=== PATIENT | female | born 1980 | race African-American/Black ===

== ENCOUNTER → 2017-02-15 13:30 | Outpatient (CLI) | payer MEDICAID ==
[2015-10-04 23:51] VITALS: BMI 26.5
[~2017-02-15 13:30] MED LIST: IBUPROFEN600 MG PO; PERCOCET 5-3251 TAB PO
== END | disposition home or self-care (01) ==
LOC: D.CT 13:30
DX: R10.31 Right lower quadrant pain (principal)

== ENCOUNTER 2017-11-09 23:46 | Emergency (ER) | payer MEDICAID ==
[~2017-11-09] VITALS: Ht 175.3 cm; Wt 81.8 kg
[2017-11-09 23:52] VITALS: Ht 175.3 cm; Wt 81.8 kg
[2017-11-10 00:39] LABS: APPEARANCE CLEAR (CLEAR); BILIRUBIN NEGATIVE (NEGATIVE); COLOR YELLOW (YELLOW); GLUCOSE NEGATIVE (NEGATIVE); KETONE NEGATIVE (NEGATIVE); NITRITE NEGATIVE (NEGATIVE); PROTEIN NEGATIVE (NEGATIVE); SPECIFIC GRAVITY 1.015 (1.005-1.020); UROBILINOGEN NORMAL (NORMAL)
[2017-11-10 00:40] LABS: BASOPHILS 0.2 % (0-2); EOSINOPHILS 1.9 % (0-7); HEMATOCRIT 40.1 % (36.0-48.0); HEMOGLOBIN 13.1 g/dL (12-16); IMMATURE GRANULOCYTES 0.2 % (0-5); LYMPHOCYTES 40.9 % (15-50); MCH 29.6 pg (26.0-34.0); MCHC 32.7 g/dL (31.0-37.0); MCV 90.7 fL (80.0-100.0); MEAN PLATELET VOLUME 10.4 fL (7.4-10.4); MONOCYTES 8.7 % (2-11); NEUTROPHILS 48.1 % (40-80); PLATELET COUNT 307 10x3/uL (130-400); RBC 4.42 10x6/uL (4.00-5.40); WBC 9.8 10x3/uL (4.8-10.8)
[2017-11-10 01:02] LABS: ALBUMIN 3.4 g/dL (3.4-5.0); ALKALINE PHOSPHATASE 78 U/L (46-116); ALT (SGPT) 15 U/L (10-68); BILIRUBIN - TOTAL 0.22 mg/dL (0.2-1.3); CALC OSMOLALITY 282 mosm/kg (275-300); CALCIUM 8.9 mg/dL (8.5-10.1); CARBON DIOXIDE 25.1 mmol/L (21.0-32.0); CHLORIDE - SERUM 106 mmol/L (98-107); CREATININE - SERUM 0.9 mg/dL (0.6-1.3); GLUCOSE 99 mg/dL (74-106); LIPASE 129 U/L (73-393); POTASSIUM - SERUM 4.1 mmol/L (3.5-5.1); PROTEIN - SERUM 7.4 g/dL (6.4-8.2); SODIUM 141 mmol/L (136-145); UREA NITROGEN 18 mg/dL (7-18); eGFR NON AFRICAN AMERICAN 75 mL/min (90-120)
[2017-11-10] MEDS ORDERED: OMEPRAZOLE40 MG PO (02:29)
[2017-11-10 05:45] VITALS: BP 129/77
== END 2017-11-10 02:45 | disposition home or self-care (01) ==
LOC: D.ER 23:46
PROVIDERS: Family Medicine
DX: K21.9 Gastro-esophageal reflux disease without esophagitis (principal); R10.13 Epigastric pain

== ENCOUNTER → 2018-01-23 09:03 | Outpatient (CLI) | payer MEDICAID ==
[2017-11-09 23:52] VITALS: BMI 26.6
[~2018-01-23 09:03] MED LIST changes: +OMEPRAZOLE40 MG PO
== END | disposition home or self-care (01) ==
LOC: D.NM 09:03
DX: R14.0 Abdominal distension (gaseous) (principal); R10.13 Epigastric pain

== ENCOUNTER → 2018-05-15 22:23 | Outpatient (CLI) | payer MEDICAID ==
[2017-11-09 23:52] VITALS: BMI 26.6
== END | disposition home or self-care (01) ==
LOC: D.MAMMO 14:00
DX: N64.4 Mastodynia (principal)

== ENCOUNTER → 2018-11-11 09:15 | Outpatient (CLI) | payer MEDICAID ==
[2017-11-09 23:52] VITALS: BMI 26.6
== END | disposition home or self-care (01) ==
LOC: D.US 09:15
PROVIDERS: ATTEND Emergency Medicine
DX: R92.8 Other abnormal and inconclusive findings on diagnostic imaging of breast (principal)

== ENCOUNTER → 2019-03-12 08:47 | Outpatient (CLI) | payer MEDICAID ==
[2017-11-09 23:52] VITALS: BMI 26.6
== END | disposition home or self-care (01) ==
LOC: D.RAD 08:47
PROVIDERS: ATTEND Internal Medicine Gastroenterology
DX: R10.13 Epigastric pain (principal); K31.84 Gastroparesis

== ENCOUNTER 2019-05-11 14:28 | Emergency (ER) | payer MEDICAID ==
[~2019-05-11] VITALS: Ht 175.3 cm; Wt 83.2 kg
[2019-05-11 14:32] VITALS: Ht 175.3 cm; Wt 83.2 kg
[2019-05-11 14:54] LABS: APPEARANCE CLEAR (CLEAR); BILIRUBIN NEGATIVE (NEGATIVE); COLOR YELLOW (YELLOW); GLUCOSE NEGATIVE (NEGATIVE); KETONE SMALL mg/dL (NEGATIVE); NITRITE NEGATIVE (NEGATIVE); PROTEIN NEGATIVE (NEGATIVE); UROBILINOGEN NORMAL (NORMAL)
[2019-05-11 14:58] LABS: BACTERIA FEW /hpf (NEGATIVE); EPITHELIAL CELLS 0-5 /hpf (0-5); WHITE CELLS - URINE 0-5 /hpf (NEGATIVE)
[2019-05-11 14:59] LABS: HCG URINE NEGATIVE (NEGATIVE)
[2019-05-11] MEDS ORDERED: FLAGYL500 MG PO (15:18)
[2019-05-11 16:20] VITALS: BP 124/86
== END 2019-05-11 16:22 | disposition home or self-care (01) ==
LOC: D.ER 14:28
PROVIDERS: Emergency Medicine
DX: Z20.2 Contact with and (suspected) exposure to infections with a predominantly sexual mode of transmission (principal); N76.0 Acute vaginitis; J45.909 Unspecified asthma, uncomplicated

== ENCOUNTER 2019-06-17 08:00 | Outpatient (CLI) | payer MEDICAID ==
[2019-05-11 14:32] VITALS: BMI 27.0
[~2019-06-17 08:00] MED LIST changes: +FLAGYL500 MG PO
== END 2019-06-17 23:59 | disposition home or self-care (01) ==
LOC: D.MAMMO 08:00
PROVIDERS: ATTEND Emergency Medicine
DX: Z12.31 Encounter for screening mammogram for malignant neoplasm of breast (principal)

== ENCOUNTER 2019-07-28 08:10 | Day surgery (SDC) | payer MEDICAID ==
[2019-07-25 12:13] LABS: BASOPHILS 0.5 % (0-2); EOSINOPHILS 1.6 % (0-7); HEMATOCRIT 43.2 % (36.0-48.0); HEMOGLOBIN 14.1 g/dL (12-16); IMMATURE GRANULOCYTES 0.2 % (0-5); LYMPHOCYTES 44.9 % (15-50); MCH 29.7 pg (26.0-34.0); MCHC 32.6 g/dL (31.0-37.0); MCV 90.9 fL (80.0-100.0); MEAN PLATELET VOLUME 9.9 fL (7.4-10.4); MONOCYTES 8.7 % (2-11); NEUTROPHILS 44.1 % (40-80); RBC 4.75 10x6/uL (4.00-5.40); RDW 13.3 % (11.5-14.5); WBC 6.4 10x3/uL (4.8-10.8)
[2019-07-25 12:17] LABS: PLATELET COUNT 396 10x3/uL (130-400)
[~2019-07-28] VITALS: Ht 175.3 cm; Wt 77.1 kg
--- NOTE | ~2019-07-28 | OP ---
PATIENT NAME: JAYMIE WALKER MEDICAL RECORD: [id number] :82 LOCATION:D.OPS ADMISSION DATE: SURGEON: DANI ELAM MD DATE OF OPERATION: 07/28/2019 PREOPERATIVE DIAGNOSES: 1. Pelvic pain. 2. Pelvic mass. POSTOPERATIVE DIAGNOSES: 1. Pelvic pain. 2. Pelvic mass. 3. Pelvic adhesions. 4. Peritoneal inclusion cyst. 5. Ovarian remnants bilaterally. PROCEDURES: 1. Diagnostic laparoscopy. 2. Lysis of adhesions. 3. Removal of peritoneal cyst. SURGEON: Dani Elam MD CHEMICAL EDUCATOR: Boris Winn. ANESTHESIOLOGIST: Dr. Evans. ANESTHESIA: General. FINDINGS: Adhesions of the small bowel to the anterior abdominal wall were encountered as well as large bowel adhesions in the left adnexa. Small bowel was also adhesed over the right adnexa. SPECIMENS REMOVED: None. SPECIMEN DISPOSITION: None applicable. ESTIMATED BLOOD LOSS: Minimal. FLUIDS: 800 cc of lactated Ringer's. URINE OUTPUT: 50 Loss. DRAINS: None. COMPLICATIONS: None. INDICATIONS: The patient is a 39-year-old female with persistent dyspareunia and pelvic pain. The patient's workup has included an ultrasound, which shows a persistent pelvic mass on the left adnexa. The patient is consented for diagnostic laparoscopy, possible left salpingo-oophorectomy and any indicated procedure. DESCRIPTION OF PROCEDURE: After informed consent was assured, the patient was taken to the operating room, anesthetic was obtained without difficulty. The OPERATIVE REPORT [id number] JAYMIE WALKER patient was now prepped and draped in usual sterile fashion. An incision was made to accommodate a 5-mm trocar and it was placed at the umbilicus. Pneumoperitoneum was established and the patient was in Trendelenburg position. A 10-mm port was placed in the midline and then a 5-mm port placed in the right lower quadrant. Through this port, a grasper was inserted. The adhesions which were encountered in the midline are placed on gentle traction. From the midline port, a Thunderbeat coagulation cutter was used along with EndoShears to take down the adhesions in the midline. After the adhesions in the midline are mobilized, the bowel swept free of the pelvis. Further adhesions were encountered in the right lower quadrant and these are taken down with EndoShears. Once the bowel has been freed from the sidewall, visualization of the adnexa reveals only a small ovarian remnant densely adhesed to the sidewall. Attention was now directed to the left side were adhesions of the large bowel are now mobilized using sharp dissection. Once these adhesions were freed, left adnexa was visualized. There was clear colored or a straw colored cyst arising from the sidewall underneath the left ovarian remnant. Using blunt dissection, this was freed and the cyst ruptures during this process, clear fluid removed. The pelvis was copiously irrigated, irrigant removed. Visualization of the operative field reveals adequate hemostasis. Pneumoperitoneum was now released and accessory trocars were removed under direct visualization. Primary trocar was now removed and all sites closed with a subcuticular stitch and covered with Dermabond. Sponge, lap, needle counts were correct times 2. The patient went to the recovery area in stable condition. TRANSINT:[id number] Voice Confirmation ID: [id number] DOCUMENT ID: [id number] DANI ELAM MD CC: [id number] DICTATION DATE: 07/28/19 1031 INSTRUCTOR TECHNICAL TRAINING: 07/28/19 1403 [facility] [address] [place] [address]
[~2019-07-28 08:10] MED LIST changes: +ALBUTEROL SULF8.5 GM INH
[2019-07-28 09:01] VITALS: BP 117/68; Ht 175.3 cm; Wt 77.1 kg
--- NOTE | 2019-07-28 10:51 | NUR ---
1042 - PT AWAKENING, YOLIS JACOBS
--- NOTE | 2019-07-28 14:40 | NUR ---
1420 PT'S RIDE IS HERE, PT. STATES SHE IS READY TO GO, RELEASED IN WC WITH ESCORT.
== END 2019-07-28 14:20 | disposition home or self-care (01) ==
LOC: D.OPS 08:10 → D.PAN 08:45 → D.OPS 08:45
PROVIDERS: ATTEND Obstetrics & Gynecology
DX: R10.2 Pelvic and perineal pain (principal); R19.07 Generalized intra-abdominal and pelvic swelling, mass and lump; N73.6 Female pelvic peritoneal adhesions (postinfective); K66.8 Other specified disorders of peritoneum; N99.83 Residual ovary syndrome

== ENCOUNTER 2019-08-04 10:30 | Outpatient (CLI) | payer MEDICAID ==
[2019-07-28 09:01] VITALS: BMI 25.1
== END 2019-08-04 11:00 | disposition home or self-care (01) ==
LOC: D.MAMMO 10:30
PROVIDERS: ATTEND Emergency Medicine
DX: R92.8 Other abnormal and inconclusive findings on diagnostic imaging of breast (principal)

== ENCOUNTER 2020-02-28 14:43 | Inpatient (IN) | payer MEDICAID ==
[~2020-02-28] VITALS: Ht 175.3 cm; Wt 73.6 kg
[2020-02-28 15:16] LABS: BASOPHILS 0.2 % (0-2); EOSINOPHILS 0.8 % (0-7); HEMATOCRIT 42.4 % (36.0-48.0); LYMPHOCYTES 43.4 % (15-50); MCH 29.7 pg (26.0-34.0); MCV 89.8 fL (80.0-100.0); MEAN PLATELET VOLUME 9.4 fL (7.4-10.4); MONOCYTES 7.4 % (2-11); NEUTROPHILS 48.2 % (40-80); PLATELET COUNT 335 10x3/uL (130-400); RBC 4.72 10x6/uL (4.00-5.40); RDW 12.9 % (11.5-14.5); WBC 6.3 10x3/uL (4.8-10.8)
[2020-02-28 15:25] LABS: APTT 30.7 SECONDS (22.8-39.4); PROTIME 13.2 SECONDS (11.6-15.0)
[2020-02-28 15:27] LABS: CALC OSMOLALITY 270 mosm/kg (275-300); CARBON DIOXIDE 20.7 mmol/L (21.0-32.0); CHLORIDE - SERUM 105 mmol/L (98-107); CREATININE - SERUM 0.8 mg/dL (0.6-1.3); GLUCOSE 126 mg/dL (74-106); POTASSIUM - SERUM 3.5 mmol/L (3.5-5.1); SODIUM 134 mmol/L (136-145); UREA NITROGEN 15 mg/dL (7-18); eGFR NON AFRICAN AMERICAN 85 mL/min (90-120)
[2020-02-28 15:43] LABS: ALBUMIN 3.7 g/dL (3.4-5.0); ALKALINE PHOSPHATASE 81 U/L (30-120); ALT (SGPT) 13 U/L (10-68); BILIRUBIN - TOTAL 0.68 mg/dL (0.2-1.3); CKMB 0.3 U/L (0.0-3.6); CREATINE KINASE 70 UL (21-215); PRO BNP 29 pg/mL (0-125); PROTEIN - SERUM 7.7 g/dL (6.4-8.2)
[2020-02-28 15:45] LABS: TROPONIN-I < 0.017 ng/mL (0.000-0.060)
[2020-02-28 15:58] LABS: BILIRUBIN NEGATIVE (NEGATIVE); HCG URINE NEGATIVE (NEGATIVE); KETONE NEGATIVE (NEGATIVE); NITRITE NEGATIVE (NEGATIVE); UROBILINOGEN NORMAL mg/dL (< 2)
[2020-02-28 16:07] LABS: EPITHELIAL CELLS 0-5 /hpf (0-5); WHITE CELLS - URINE NSEEN HPF (0-4)
[2020-02-28 16:08] LABS: BACTERIA FEW HPF (NONE SEEN)
--- NOTE | 2020-02-28 18:29 | NUR ---
COVID SWAB COLLECTED AND SENT TO LAB
--- NOTE | 2020-02-28 18:43 | NUR ---
HOA TURNERY TO PATIENT.
--- NOTE | 2020-02-28 19:16 | NUR ---
PT FINISHED EATING ALL OF SANDWHICH TRAY. REPEAT UPDRAFT ORDERED.
--- NOTE | 2020-02-28 19:36 | NUR ---
NS BOLUS COMPLETE.
--- NOTE | 2020-02-28 21:16 | NUR ---
ADMIT TO ROOM 2120 FROM ER. ALERT/ORIENTED/AMBULATORY. NO DISTRESS. TELEMETRY STARTED SHOWING SR 75. INITIATE PLAN OF CARE. ADMISSION ASSESSMENT AND HISTORY +HOME MED REVIEW COMPLETED.
[2020-02-28 22:58] VITALS: BP 125/78; Ht 175.3 cm; Wt 73.6 kg
[2020-02-29 04:00] VITALS: BP 115/66
[2020-02-29 04:55] LABS: BASOPHILS 0 % (0-2); EOSINOPHILS 0 % (0-7); HEMOGLOBIN 13.3 g/dL (12-16); IMMATURE GRANULOCYTES 0.1 % (0-5); LYMPHOCYTES 11.8 % (15-50); MCH 29.4 pg (26.0-34.0); MCHC 32.4 g/dL (31.0-37.0); MCV 90.5 fL (80.0-100.0); MEAN PLATELET VOLUME 9.9 fL (7.4-10.4); MONOCYTES 2.1 % (2-11); PLATELET COUNT 365 10x3/uL (130-400); RBC 4.53 10x6/uL (4.00-5.40); WBC 8.5 10x3/uL (4.8-10.8)
[2020-02-29 05:11] LABS: ALBUMIN 3.4 g/dL (3.4-5.0); ANION GAP 13.9 mmol/L (8-16); BILIRUBIN - TOTAL 0.31 mg/dL (0.2-1.3); CALCIUM 8.7 mg/dL (8.5-10.1); CARBON DIOXIDE 22.8 mmol/L (21.0-32.0); CREATININE - SERUM 0.9 mg/dL (0.6-1.3); POTASSIUM - SERUM 3.7 mmol/L (3.5-5.1); PROTEIN - SERUM 7.4 g/dL (6.4-8.2)
[2020-02-29 05:51] LABS: APTT 33.7 SECONDS (22.8-39.4); INR 1.1 (0.85-1.17); PROTIME 14.1 SECONDS (11.6-15.0)
[2020-02-29 08:13] VITALS: BP 134/82
[2020-02-29] MEDS ORDERED: PREDNISONE10 MG PO (10:18)
--- NOTE | 2020-02-29 13:15 | NUR ---
IV AND TELEMETRY DCD. DC PLANS GIVEN. UNDERSTANDING VOICED. ESCORTED TO CAR BY W/C.
--- NOTE | 2020-02-29 13:34 | MORECARE ---
CASE MANAGEMENT DISCHARGE SUMMARY PATIENT: JAYMIE WALKER UNIT: [id number] ADM DATE: 02/28/20 AGE: 39 : 82 SEX: F ROOM/BED: D.9658 AUTHOR: CHARBEL BERNARD PHYSICIAN: REFERRING PHYSICIAN: LEONCIO SOUSA DO DATE OF SERVICE: 02/29/20 Discharge Plan Patient Name: JAYMIE WALKER Facility: [facility]:[place] : 1980 Planned Disposition: Home Anticipated Discharge Date: 02/28/20 Discharge Date: 02/29/2020 Expected LOS: 1 Initial Reviewer: FÉLIX Initial Review Date: 02/28/2020 Generated: 02/29/20 2:33 pm Comments DCP- Discharge Planning Updated by [id number]: Eddie Patiño on 02/29/20 12:[address] Patient Name: JAYMIE WALKER Admission Status: ER Accout number: [id number] Admission Date: 02-28-2020 : 1980 Admission Diagnosis: Attending: LEONCIO SOUSA Current LOS: 1 Anticipated DC Date: 02-28-2020 Planned Disposition: Home Primary Insurance: [facility] PRIVATE OPTIONS [facility] Discharge Planning Comments: CM met with patient to complete initial dc planning assessment. CM educated patient on the CM role and verbal consent was given by patient to complete assessment. CM verified patient's address, phone number, and emergency contact phone numbers. Patient lives at home with her partner Omar Manrique ([phone]). At discharge patient plans to return home and feels this is a safe discharge. The patient has 0 steps to navigate to enter the home and it is safe. Patient fills her medications at [facility] near [facility] in [place]. CM discussed availability of home health, rehab services, and medical equipment. Patient declined HHS, SNF, IPR, and DME. No other known discharge needs were discussed at this time. Transportation provider at discharge will be with her partner Omar. CM will continue to follow and will assist as needed with dc plans/needs. Planisher: Eddie Patiño DCPIA - Discharge Planning Initial Assessment Updated by [email or web address]: Eddie Patiño on 02/29/20 1:31 pm * Is the patient Alert and Oriented? Yes * How many steps to enter\exit or inside your home? 0/0 * PCP Dr. Juarez * [facility] in [place] * Preadmission Environment Home with Family * ADLs Independent * Equipment None * Other Equipment n/a * List name and contact numbers for known caregivers / representatives who currently or will assist patient after discharge: Omar Burton ([phone]) * Verbal permission to speak to the caregivers and representatives has been obtained from the patient. Yes * Community resources currently utilized None * Please name any agencies selected above. n/a * Additional services required to return to the preadmission environment? No * Can the patient safely return to the preadmission environment? Yes * Has this patient been hospitalized within the prior 30 days at any hospital? No Coverage Notice Reviewer: [id number] Roby Patiño Notice Issued Date-Time: 02/29/2020 11:44 Notice Type: Patient Choice Letter Notice Delivered To: Patient Relationship to Patient: Self 6Th Grade Teacher Name: Delivery Method: HAND - Hand Delivered Cindy Days: Prior Verbal Notification: Recipient Understood Notice: Yes Recipient Signature: Yes Med Rec Note Co-signed by Attending: Coverage Notice Comment: 0 DME/SNF/HHS/IPR Patient Name: JAYMIE WALKER Page [phone] at 1334 All edits/amendments must be made on the electronic document DICTATION DATE: 02/29/20 1334 BAND AND CUFF CUTTER: NAMRATA 02/29/20 1334 RPT#: [id number] DC DATE:02/29/20 STATUS: DIS IN [facility] [address] [place] [address] END OF REPORT
--- NOTE | 2020-03-01 08:55 | MORECARE ---
CASE MANAGEMENT DISCHARGE SUMMARY PATIENT: JAYMIE WALKER UNIT: [id number] ADM DATE: 02/28/20 AGE: 39 : 82 SEX: F ROOM/BED: D.9355 AUTHOR: CHARBEL BERNARD PHYSICIAN: REFERRING PHYSICIAN: LEONCIO SOUSA DO DATE OF SERVICE: 03/01/20 Discharge Plan Patient Name: JAYMIE WALKER Facility: [facility]:[place] : 1980 Planned Disposition: Home Anticipated Discharge Date: 02/28/20 Discharge Date: 02/29/2020 Expected LOS: 1 Initial Reviewer: FÉLIX Initial Review Date: 02/28/2020 Generated: 03/01/20 9:55 am Comments DCP- Discharge Planning Updated by [email or web address]: Eddie Patiño on 02/29/20 12:[address] Patient Name: JAYMIE WALKER Admission Status: ER Accout number: [id number] Admission Date: 02-28-2020 : 1980 Admission Diagnosis: Attending: LEONCIO SOUSA Current LOS: 1 Anticipated DC Date: 02-28-2020 Planned Disposition: Home Primary Insurance: [facility] PRIVATE OPTIONS [facility] Discharge Planning Comments: CM met with patient to complete initial dc planning assessment. CM educated patient on the CM role and verbal consent was given by patient to complete assessment. CM verified patient's address, phone number, and emergency contact phone numbers. Patient lives at home with her partner Omar Manrique ([phone]). At discharge patient plans to return home and feels this is a safe discharge. The patient has 0 steps to navigate to enter the home and it is safe. Patient fills her medications at [facility] near [facility] in [place]. CM discussed availability of home health, rehab services, and medical equipment. Patient declined HHS, SNF, IPR, and DME. No other known discharge needs were discussed at this time. Transportation provider at discharge will be with her partner Omar. CM will continue to follow and will assist as needed with dc plans/needs. Contract Management Specialist: Eddie Patiño DCPIA - Discharge Planning Initial Assessment Updated by [email or web address]: Eddie Patiño on 02/29/20 1:31 pm * Is the patient Alert and Oriented? Yes * How many steps to enter\exit or inside your home? 0/0 * PCP Dr. Juarez * [facility] near [facility] in [place] * Preadmission Environment Home with Family * ADLs Independent * Equipment None * Other Equipment n/a * List name and contact numbers for known caregivers / representatives who currently or will assist patient after discharge: Omar Manrique ([phone]) * Verbal permission to speak to the caregivers and representatives has been obtained from the patient. Yes * Community resources currently utilized None * Please name any agencies selected above. n/a * Additional services required to return to the preadmission environment? No * Can the patient safely return to the preadmission environment? Yes * Has this patient been hospitalized within the prior 30 days at any hospital? No Coverage Notice Reviewer: [id number] Roby Patiño Notice Issued Date-Time: 02/29/2020 11:44 Notice Type: Patient Choice Letter Notice Delivered To: Patient Relationship to Patient: Self Wire Saw Operator Name: Delivery Method: HAND - Hand Delivered Cindy Days: Prior Verbal Notification: Recipient Understood Notice: Yes Recipient Signature: Yes Med Rec Note Co-signed by Attending: Coverage Notice Comment: 0 DME/SNF/HHS/IPR Last DP export: 02/29/20 12:34 p Patient Name: JAYMIE WALKER Page [phone] at 0855 All edits/amendments must be made on the electronic document DICTATION DATE: 03/01/20 0855 GRAVEL TRUCK DRIVER: NAMRATA 03/01/20 0855 RPT#: [id number] DC DATE:02/29/20 STATUS: DIS IN [facility] [address] [place] [address] END OF REPORT
== END 2020-02-29 13:15 | disposition home or self-care (01) | DRG 203 ==
LOC: D.ER 14:43 → D.M2 18:54
PROVIDERS: Family Medicine; ADMIT Family Medicine; ATTEND Family Medicine
DX: J45.901 Unspecified asthma with (acute) exacerbation (principal); K21.9 Gastro-esophageal reflux disease without esophagitis